=== PATIENT | female | born 1940 | race Caucasian/White ===

== ENCOUNTER 2017-05-17 11:07 | Emergency (ER) | payer MEDICARE, MEDICAID ==
[~2017-05-17 11:07] MED LIST: ABILIFY5 MG PO; ACTOS30 MG; ACTOS30 MG PO; ADULT ASPIRIN81 MG PO; ALPRAZOLAM; ALPRAZOLAM ER1 MG PO; ALPRAZOLAM1 M2 PO; ALPRAZOLAM1 MG; ANUCORT-HC25 MG/SUPP RC; ASPIR 8181 MG PO; ASPIRIN LOW STR81 MG PO; B-COMPLEX FOL400 MCG PO; BABY ASPIRIN81 MG PO; BL MAXEPA CAPSU1 CAP PO; CALCIUM; CALCIUM 600 +1 EAC2 PO; CALCIUM 600 +1 EACH PO; CELEBREX200 MG PO; CIPRO500 MG PO; COUMADIN2 MG PO; CRESTOR40 MG PO; FISH OIL 1,0001 CA PO; FISH OIL 1,0001 CAP PO; FLEXERIL10 MG PO; FLUOXETINE HCL10 MG PO; FLUTICASONE PRO16 GM NS; FOLIC ACID; FOLIC ACID PO; FOLIC ACID0.4 MG PO; FOLIC ACID1 MG PO; FOSAMAX70 MG PO; GNP CALCIUM PO; HYDROXYCHLOROQ200 MG PO; IRON325 MG PO; KEPPRA XR500 MG PO; KEPPRA1000 MG PO; KEPPRA250 MG PO; KEPPRA750 MG PO; LIPITOR10 MG; LIPITOR20 MG PO; LISINOPRIL10 MG; LISINOPRIL10 MG PO; LOVENOX150 MG/ML SQ; MILLIPRED DP5 M1 PO; NAPROXEN500 MG PO; NEURONTIN600 MG PO; NOVOLOG100 UNIT/1 SQ; OMEPRAZOLE20 M2 PO; OMEPRAZOLE20 MG; OMEPRAZOLE20 MG PO; OYSTER SHELL C500 MG PO; PERCOCET 5/3251 TAB PO; PRILOSEC20 MG PO; PROZAC WEEKLY90 MG; PROZAC10 M PO; PROZAC10 MG; PROZAC10 MG PO; PROZAC20 MG PO; PROZAC40 MG; PROZAC40 MG PO; RESTORIL30 MG PO; RISPERDAL4 MG PO; SENNA S TABLET1 TAB PO; SENNA8.6 M1 PO; SENNO8.6 MG PO; THERAGRAN-M 1,21 CAP PO; TOPAMAX200 MG; TOPAMAX200 MG PO; TOPROL XL100 MG; TOPROL XL100 MG PO; TOPROL XL50 MG PO; TOPROL-XL100 MG/TAB PO; TRAMADOL HCL50 M1 PO; TYLENOL325 MG PO; VICODIN 5/500 T1 TAB PO; VIT D PO; VIT E PO; VITAMIN D PO; VITAMIN D-1000 UNIT/ PO; VITAMIN D1000 UNI1 PO; VITAMIN D1000 UNIT PO; VITAMIN E; WELLBUTRIN NG; WELLBUTRIN SR150 MG PO; XANAX XR2 MG PO; XANAX0.5 MG PO; XANAX1 MG PO; XANAX2 MG PO; ZITHROMAX250MG Z-PAK PO; ZOCOR40 MG PO; ZOFRAN ODT4 MG/UDTAB PO; ZYRTEC10 M1 PO
[2017-05-17] MEDS ORDERED: TYLENOL325 M2 PO (11:18)
[2017-05-17] MEDS ORDERED: ABILIFY5 M1 PO (11:19)
[2017-05-17] MEDS ORDERED: COLACE100 M1 PO ×2 (11:19→11:20)
[2017-05-17] MEDS ORDERED: XANAX0.5 M1 PO ×2 (11:19→11:42)
[2017-05-17] MEDS ORDERED: ALENDRONATE SOD70 M2 PO (11:19)
[2017-05-17] MEDS ORDERED: ASPIR-LOW81 M1 PO (11:19)
[2017-05-17] MEDS ORDERED: PROZAC10 M1 PO (11:20)
[2017-05-17] MEDS ORDERED: FOLIC ACID1 M1 PO (11:20)
[2017-05-17] MEDS ORDERED: FISH OIL 11000 MG/CA PO (11:20)
[2017-05-17] MEDS ORDERED: PLAQUENIL200 M1 PO (11:21)
[2017-05-17] MEDS ORDERED: TOPROL XL50 M1 PO (11:21)
[2017-05-17] MEDS ORDERED: CLARITIN10 M6 PO (11:21)
[2017-05-17] MEDS ORDERED: LEVETIRACETAM500 M2 PO (11:21)
[2017-05-17] MEDS ORDERED: NOVOLOG MI100 UNIT/1 SC (11:22)
[2017-05-17] MEDS ORDERED: OYSTER SHELL 51 EAC2 PO (11:22)
[2017-05-17] MEDS ORDERED: OMEPRAZOLE20 M3 PO (11:22)
[2017-05-17] MEDS ORDERED: ROSUVASTATIN CA40 MG PO (11:23)
[2017-05-17] MEDS ORDERED: PREDNISONE2.5 M1 PO (11:23)
[2017-05-17] MEDS ORDERED: VITAMIN D31000 UNI3 PO (11:33)
[2017-05-17] MEDS ORDERED: TOPAMAX100 M2 PO (11:33)
[2017-05-17] MEDS ORDERED: RESTORIL30 M1 PO (11:33)
[2017-05-17] MEDS ORDERED: [UNRECOGNIZED DRUG - REMARK] PO (11:35)
[2017-05-17 11:39] LABS: BASO % 0.4 % (0-2); EOS % 0.9 % (0-7); EOSINOPHIL ABSOLUTE COUNT 0.1 tho/cmm (0.0-0.7); HGB-HEMOGLOBIN 10.1 gm/dl (12.0-15.5); IMMATURE GRANULOCYTES ABSOLUTE 0.01 tho/cmm (0-0.03); IMMATURE GRANULOCYTES PERCENT 0.1 % (0-0.3); LYMPH % 21.2 % (20-45); LYMPH ABSOLUTE COUNT 1.6 tho/cmm (0.8-4.5); MCH (MEAN CORPUSCULAR HGB) 24.3 pg (28.0-32.0); MCHC MEAN CORPUSCULAR HGB CONC 29.7 % (32.0-36.0); MCV (MEAN CELL VOLUME) 81.7 fl (82.0-96.0); MEAN PLATELET VOLUME 10.3 cmc (9.4-12.4); MONO % 9.4 % (0-12); MONOCYTE ABSOLUTE COUNT 0.7 tho/cmm (0.0-1.2); NEUTROPHIL ABSOLUTE COUNT 5.2 tho/cmm (1.6-8.0); NEUTROPHIL-AUTOMATED 5.2 tho/cmm (1.6-8.0); PLATELET COUNT 206 tho/cmm (150-450); RED BLOOD COUNT 4.16 mil/cmm (4.00-5.20); RED CELL DISTRIBUTION WIDTH 15.6 % (12.4-16.4); WHITE BLOOD COUNT 7.6 tho/cmm (4.0-10.0)
[2017-05-17] MEDS ORDERED: FIORICET 50-301 EAC1 PO (11:42)
[2017-05-17] MEDS ORDERED: BISAC-EVAC10 MG PR (11:42)
[2017-05-17] MEDS ORDERED: PENLAC6.6 M1 TP (11:44)
[2017-05-17] MEDS ORDERED: DENTAGEL56 GM DT (11:45)
[2017-05-17] MEDS ORDERED: [UNRECOGNIZED DRUG - OTHER] TP (11:45)
[2017-05-17] MEDS ORDERED: BENADRYL25 M3 PO (11:45)
[2017-05-17] MEDS ORDERED: MAPAP500 M2 PO (11:46)
[2017-05-17] MEDS ORDERED: ANUSOL-HC25 MG PO (11:46)
[2017-05-17] MEDS ORDERED: MILK OF MAGNESIA PO (11:46)
[2017-05-17] MEDS ORDERED: PINK BISMU PO (11:47)
[2017-05-17] MEDS ORDERED: NYAMYC15 GM TP (11:47)
[2017-05-17] MEDS ORDERED: SALONPAS PATCH1 EAC1 PO (11:48)
[2017-05-17] MEDS ORDERED: ULTRAM50 M1 PO (11:49)
[2017-05-17] MEDS ORDERED: SENNA8.6 M2 PO (11:49)
[2017-05-17] MEDS ORDERED: ZINC OXIDE30 G1 TP (11:50)
[2017-05-17 11:58] LABS: ANION GAP 11 mmol/L (0-20); BLOOD UREA NITROGEN 11 mg/dl (6-24); CALCIUM 8.8 mg/dl (8.5-10.5); CARBON DIOXIDE-VENOUS 27 mmol/L (22-32); CHLORIDE 103 mmol/l (96-110); CREATININE 0.59 mg/dl (0.50-1.10); GLUCOSE 159 mg/dL (70-110); POTASSIUM 4.2 mmol/L (3.7-5.1); SODIUM 137 mmol/L (135-145); eGFR VALUE FOR BLACK >90 mL/Min
[2017-07-11] MEDS ORDERED: VITAMIN D31000 UNI3 PO (13:49)
== END 2017-05-17 12:54 ==
LOC: EDMED 11:07
PROVIDERS: Emergency Medicine
DX: R09.1 Pleurisy (principal); E11.9 Type 2 diabetes mellitus without complications; I10 Essential (primary) hypertension; Z90.710 Acquired absence of both cervix and uterus
CPT/HCPCS: Q9967